=== PATIENT | male | born 1960 | race Caucasian/White ===

== ENCOUNTER 2018-07-30 19:23 | Emergency (ER) | payer BC ==
[2018-07-30] MEDS: HYDROCODONE/APAP 10/325 TABLET PO ONE (20:15)
--- NOTE | 2018-07-30 20:17 | Emergency Department Record ---
History of Present Illness - General Chief complaint: Lower Extremity Pain Stated complaint: HIP PAIN LT- Time Seen by Provider: 07/30/18 20:09 Source: Patient Mode of Arrival: Ambulatory Limitations: No limitations - History of Present Illness Initial comments: 58 yo male presents to ED for evaluation of worsening pain to the left hip. Patient denies fall or injury, reports active treatment for lung cancer with mets to the hips per patient's previous PET scan 1 month ago. Patient is concerned about possible fracture, although he is able to weight bear however is painful. Patient denies any weakness symptoms to the lower extremities bilaterally, denies numbness over the groin region, and denies urinary retention symptoms. Patient does have both Zillah and Tylenol #3 at home that he has not taken for approximately 1 month. MD Complaint: Joint swelling Onset/Timin -: Days(s) Location: Left, Other History of Same: No Radiation: Proximal Severity scale (1-10): 4 Quality: Sharp, Stabbing Consistency: Intermittent Improves with: Immobilization, Rest Worsens with: Walking, Weight bearing - Related Data Home Medications Medication Instructions Recorded Confirmed Last Taken Budesonide/Formoterol Fumarate 2 puff INH BID 07/30/18 07/30/18 07/30/18 [Symbicort 80-4.5 Mcg Inhaler] Pembrolizumab [Keytruda] 100 mg IV ASDIR 07/30/18 07/30/18 07/23/18 Zoledronic Acid/Mannitol&Water 5 mg IV ONCE 07/30/18 07/30/18 07/02/18 [Reclast] Allergies Allergy/AdvReac Type Severity Reaction Status Date / Time No Known Drug Allergies Allergy Verified 07/30/18 20:08 Travel Screening - Travel/Exposure Within Last 30 Days Have you traveled within the last 30 days?: No - Travel/Exposure Within Last Year Have you traveled outside the [place] in the last year?: Yes Location Detail:: [place] - Additonal Travel Details Have you been exposed to anyone with a communicable illness?: No - Travel Symptoms Symptom Screening: None Review of Systems Constitutional: Denies: Chills, Fever, Malaise, Night sweats Eyes: Denies: Eye discharge, Eye pain ENT: Denies: Congestion, Ear pain, Epistaxis Respiratory: Denies: Cough, Dyspnea Cardiovascular: Denies: Chest pain, Dyspnea on exertion Endocrine: Denies: Fatigue, Heat or cold intolerance Gastrointestinal: Denies: Abdominal pain, Nausea, Vomiting Genitourinary: Denies: Incontinence, Retention Musculoskeletal: Reports: Arthralgia. Denies: Back pain, Gout, Joint swelling Skin: Denies: Bruising, Change in color Neurological: Denies: Abnormal gait, Confusion, Headache, Seizure Psychiatric: Denies: Anxiety Hematological/Lymphatic: Denies: Anemia, Blood Clots Past Medical History - SOCIAL HISTORY Smoking Status: Never smoker Alcohol Use: Rare Drug Use: None - RESPIRATORY Hx Respiratory Disorders: No - CARDIOVASCULAR Hx Cardio Disorders: No - NEURO Hx Neuro Disorders: No - GI Hx GI Disorders: No - Hx Genitourinary Disorders: No - ENDOCRINE Hx Endocrine Disorders: No - MUSCULOSKELETAL Hx Musculoskeletal Disorders: No - PSYCH Hx Psych Problems: Yes Hx Anxiety: Yes - HEMATOLOGY/ONCOLOGY Hx Hematology/Oncology Disorders: Yes Hx Cancer: Yes (lung, mets to hips) Family Medical History Any Significant Family History?: No Physical Exam - General General Appearance: Alert, Oriented x3, Cooperative, Mild distress Limitations: No limitations - Head Head exam: Atraumatic, Normocephalic, Normal inspection Head exam detail: negative: Abrasion, Contusion, Medina's sign, General tenderness, Hematoma, Laceration - Eye Eye exam: Normal appearance. negative: Conjunctival injection, Periorbital swelling, Periorbital tenderness, Scleral icterus - ENT Ear exam: negative: Auricular hematoma, Auricular trauma Nasal Exam: negative: Active bleeding, Discharge, Dried blood, Foreign body Mouth exam: negative: Drooling, Laceration, Muffled voice, Tongue elevation - Neck Neck exam: Normal inspection. negative: Meningismus, Tenderness - Respiratory Respiratory exam: Normal lung sounds bilaterally. negative: Rales, Respiratory distress, Rhonchi, Stridor - Cardiovascular Cardiovascular Exam: Regular rate, Normal rhythm, Normal heart sounds - GI/Abdominal GI/Abdominal exam: Soft. negative: Rebound, Rigid, Tenderness - Rectal Rectal exam: Deferred - exam: Deferred - Extremities Extremities exam: Normal inspection. negative: Pedal edema, Tenderness - Back Back exam: Denies: CVA tenderness (R), CVA tenderness (L) - Neurological Neurological exam: Alert, Normal gait, Oriented X3 - Psychiatric Psychiatric exam: Normal affect, Normal mood - Skin Skin exam: Normal color. negative: Abrasion Type of lesion: negative: abrasion Course Vital Signs 07/30/18 19:53 Temperature 98.4 F Pulse Rate [ 89 Pulse Ox Probe] Respiratory 20 Rate Blood Pressure 139/88 [Left Arm] Pulse Ox 95 - Reevaluation(s) Reevaluation #1: 07/30/18 20:15 Patient's EHL, plantar flexion, and dorsiflexion are all 5/5 and symmetric bilaterally. No numbness over the groin region. Will obtain post-void residual to determine if urine is retained within the bladder, however history does not suggest acute compression of the spinal cord on examination. Will obtain imaging of the pelvis and hips via CT to exclude micro-fracture. Patient is in agreement with the plan of care as discussed. Reevaluation #2: 07/30/18 21:45 Post-void residual 0 mL x [address] Pelvis: Lytic lesion left acetabulum region measuring 2.2 x 1.6 cm Smaller lytic lesions present to the SI joints bilaterally All new from 2016. Patient was updated on all results, no fracture or dislocations present. Again, there is no clinical evidence for mets to the spine resulting in spinal cord compression syndrome. Patient was encouraged to continue his Prednisone, Ibuprofen, and Tylenol #3 OR Zillah as directed. Patient was instructed to call Dr. Jade for evaluation in 1-3 days as directe d. 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 Continue Prednisone, Ibuprofen, and Zillah OR Tylenol #3 as previously prescribed. Follow-up with Dr. Jade in 1-3 days as directed. Forms: Patient Portal Access Time of Disposition: 21:49 Quality - Quality Measures Quality Measures: N/A - Blood Pressure Screening Does Patient Have Any of the Following: No Blood Pressure Classification: Pre-Hypertensive BP Reading Systolic Measurement: 126 Diastolic Measurement: 82 Screening for High Blood Pressure: < Pre-Hypertensive BP, F/U Documented > [G8950] Pre-Hypertensive Follow-up Interventions: Referral to alternative/primary care provider.
--- NOTE | 2018-07-31 08:44 | CT SCAN REPORT ---
EXAM: CT SCAN OF THE PELVIS WITHOUT CONTRAST HISTORY: LEFT GROIN AND BUTTOCK PAIN FOR THE PAST THREE TO FOUR DAYS. HISTORY OF LUNG CANCER. STABBING SHOOTING PAIN DOWN THE LEFT LEG. TECHNIQUE: Standard CT imaging of the pelvis was performed in the axial plane without contrast. Additional coronal and sagittal reformatted images were also performed. Comparison: Previous CT scan of the abdomen and pelvis from [facility] dated 04/08/15. FINDINGS: There are scattered diverticula within the sigmoid colon with no evidence for acute diverticulitis. The remaining visualized large and small bowel loops are normal. The urinary bladder is normal. The prostate gland is enlarged. The visualized portions of the anterior abdominal wall appear intact. There is a subtle lytic lesion just above the left acetabulum measuring 2.2 x 1.6 cm. This extends to the posterior superior articular surface. This was not present on the previous CT study from 2016. There is a 1.1 x 0.8 cm lytic lesion involving the left iliac bone just lateral to the sacroiliac joint. A 1.8 x 0.9 cm lytic lesion is present involving the right iliac bone just lateral to the sacroiliac joint. These areas are also new from the 2016 examination. There is no acute fracture. No other discrete lytic lesions are identified. IMPRESSION: 1. SUBTLE LYTIC LESION JUST ABOVE THE LEFT ACETABULUM EXTENDING TO THE POSTERIOR SUPERIOR ARTICULAR SURFACE. SUBTLE LYTIC LESIONS ARE ALSO NOTED INVOLVING THE ILIAC BONES BILATERALLY ADJACENT TO THE SACROILIAC JOINTS. 2. NO ACUTE INTRAPELVIC PATHOLOGY. 3. SIGMOID DIVERTICULOSIS WITH NO DIVERTICULITIS. JOB NUMBER: [id number] [facility]
== END 2018-07-30 21:57 | disposition home or self-care (01) ==
LOC: ER 19:23
DX: G89.3 Neoplasm related pain (acute) (chronic) (principal); C79.51 Secondary malignant neoplasm of bone
CPT/HCPCS: 72192; 99284